=== PATIENT | female | born 1990 | race Caucasian/White ===

== ENCOUNTER 2017-06-20 16:31 | Emergency (ER) | payer OTHER ==
[~2017-06-20] VITALS: Ht 170.2 cm; Wt 60.8 kg
[2017-06-20 16:34] VITALS: Ht 170.2 cm; Wt 60.8 kg
[2017-06-20 19:50] VITALS: BP 115/77
== END 2017-06-20 19:25 | disposition home or self-care (01) ==
LOC: ED 16:31
DX: S02.2XXA Fracture of nasal bones, initial encounter for closed fracture (principal); S09.90XA Unspecified injury of head, initial encounter; E11.9 Type 2 diabetes mellitus without complications; W21.07XA Struck by softball, initial encounter; Y93.64 Activity, baseball; Y92.89 Other specified places as the place of occurrence of the external cause; Y99.8 Other external cause status
CPT/HCPCS: 90715

== ENCOUNTER 2018-09-08 18:23 | Emergency (ER) | payer OTHER ==
[~2018-09-08] VITALS: Ht 170.2 cm; Wt 57.6 kg
[2018-09-08 18:30] VITALS: Ht 170.2 cm; Wt 57.6 kg
[2018-09-08 19:33] LABS: ALBUMIN 3.9 g/dL (3.4-5.0); ALKALINE PHOSPHATASE 65 U/L (46-116); ALT/SGPT 18 U/L (14-59); AST/SGOT 7 U/L (15-37); BILIRUBIN TOTAL 0.5 mg/dL (0.20-1.00); CALCIUM 8.9 mg/dL (8.5-10.1); CARBON DIOXIDE 26.7 mmol/L (21-32); CHLORIDE SERUM 100 mmol/L (98-107); CREATININE SERUM 0.6 mg/dL (0.6-1.0); GFR1 > 60 mL/min; GLUCOSE SERUM 207 mg/dL (74-106); POTASSIUM SERUM 3.8 mmol/L (3.5-5.1); SODIUM SERUM 137 mmol/L (136-145); TOTAL PROTEIN, SERUM 6.9 g/dL (6.4-8.2)
[2018-09-08 22:29] VITALS: BP 106/69
== END 2018-09-08 22:29 | disposition home or self-care (01) ==
LOC: ED 18:23
PROVIDERS: Emergency Medicine
DX: J06.9 Acute upper respiratory infection, unspecified (principal); M94.0 Chondrocostal junction syndrome [Tietze]; E10.9 Type 1 diabetes mellitus without complications
CPT/HCPCS: 82962; J1885; Q0092

== ENCOUNTER 2019-04-10 17:58 | Emergency (ER) | payer OTHER | END 2019-04-10 19:06 | disposition left against medical advice (07) | LOC: ED 17:58 | DX: Z53.21 Procedure and treatment not carried out due to patient leaving prior to being seen by health care provider (principal) ==

== ENCOUNTER 2019-04-10 20:37 | Emergency (ER) | payer OTHER ==
[~2019-04-10] VITALS: Ht 167.6 cm; Wt 52.6 kg
[2019-04-10 20:45] VITALS: Ht 167.6 cm; Wt 52.6 kg
[2019-04-10 22:50] LABS: BASOPHIL % 0.3 % (0-2); PLATELET COUNT 271 x10^3mcL (130-400); RED CELL DISTRIBUTION WIDTH 13.3 % (11.5-14.5)
[2019-04-10 23:20] LABS: CARBON DIOXIDE 32.6 mmol/L (21-32); CHLORIDE SERUM 103 mmol/L (98-107); GLUCOSE SERUM 146 mg/dL (74-106); POTASSIUM SERUM 3.8 mmol/L (3.5-5.1); SODIUM SERUM 140 mmol/L (136-145)
[2019-04-10 23:21] LABS: ALBUMIN 3.5 g/dL (3.4-5.0); ALKALINE PHOSPHATASE 57 U/L (46-116); ALT/SGPT 26 U/L (14-59); AST/SGOT 7 U/L (15-37); BILIRUBIN TOTAL 0.09 mg/dL (0.20-1.00); CALCIUM 8.6 mg/dL (8.5-10.1); CREATININE SERUM 0.8 mg/dL (0.6-1.0); GFR1 > 60 mL/min; TOTAL PROTEIN, SERUM 6.4 g/dL (6.4-8.2)
[2019-04-11 00:21] VITALS: BP 112/71
== END 2019-04-11 00:21 | disposition home or self-care (01) ==
LOC: ED 20:37
PROVIDERS: Emergency Medicine
DX: R53.1 Weakness (principal); R51 Headache; E11.9 Type 2 diabetes mellitus without complications
CPT/HCPCS: 82962; J1885; J7030

== ENCOUNTER 2019-05-16 11:47 | Emergency (ER) | payer OTHER ==
[~2019-05-16] VITALS: Ht 170.2 cm; Wt 51.3 kg
[2019-05-16 12:10] VITALS: Ht 170.2 cm; Wt 51.3 kg
[2019-05-16 14:36] LABS: BASOPHIL % 0.1 % (0-2); PLATELET COUNT 184 x10^3mcL (130-400); RED CELL DISTRIBUTION WIDTH 12.8 % (11.5-14.5)
[2019-05-16 14:48] LABS: CALCIUM 8.4 mg/dL (8.5-10.1); CARBON DIOXIDE 21.9 mmol/L (21-32); CHLORIDE SERUM 94 mmol/L (98-107); CREATININE SERUM 0.7 mg/dL (0.6-1.0); GFR1 > 60 mL/min; GLUCOSE SERUM 279 mg/dL (74-106); POTASSIUM SERUM 4.2 mmol/L (3.5-5.1); SODIUM SERUM 130 mmol/L (136-145)
[2019-05-16 14:55] LABS: ALKALINE PHOSPHATASE 73 U/L (46-116); ALT/SGPT 15 U/L (14-59); AST/SGOT 8 U/L (15-37); BILIRUBIN TOTAL 0.5 mg/dL (0.20-1.00); TOTAL PROTEIN, SERUM 6.7 g/dL (6.4-8.2)
[2019-05-16 14:57] LABS: ALBUMIN 3.1 g/dL (3.4-5.0)
[2019-05-16 17:00] VITALS: BP 100/67
== END 2019-05-16 17:00 | disposition home or self-care (01) ==
LOC: ED 11:47
PROVIDERS: Emergency Medicine
DX: E11.65 Type 2 diabetes mellitus with hyperglycemia (principal); F17.210 Nicotine dependence, cigarettes, uncomplicated; Z71.6 Tobacco abuse counseling
CPT/HCPCS: 82962; 87804; 99406; J1885; J2405; J7030

== ENCOUNTER 2019-05-17 12:16 | Inpatient (IN) | payer OTHER ==
[~2019-05-17] VITALS: Ht 170.2 cm; Wt 49.2 kg
[2019-05-17 12:39] VITALS: Ht 170.2 cm; Wt 49.2 kg
[2019-05-17 13:47] LABS: BASOPHIL % 0.1 % (0-2); PLATELET COUNT 230 x10^3mcL (130-400)
[2019-05-17 13:59] LABS: ALKALINE PHOSPHATASE 125 U/L (46-116); ALT/SGPT 22 U/L (14-59); AST/SGOT 16 U/L (15-37); BILIRUBIN TOTAL 0.37 mg/dL (0.20-1.00); CARBON DIOXIDE 11.8 mmol/L (21-32); CHLORIDE SERUM 93 mmol/L (98-107); GFR1 > 60 mL/min; GLUCOSE SERUM 399 mg/dL (74-106); LIPASE 35 IU/L (73-393); SODIUM SERUM 125 mmol/L (136-145); TOTAL PROTEIN, SERUM 7.9 g/dL (6.4-8.2)
[2019-05-17 14:02] LABS: ALBUMIN 3.3 g/dL (3.4-5.0); POTASSIUM SERUM 5.7 mmol/L (3.5-5.1)
[2019-05-17 15:28] LABS: UA SPECIFIC GRAVITY 1.025 (1.005-1.035); microscopic required? YES; urine erythrocyte 2+ (NEGATIVE)
[2019-05-17 17:13] VITALS: BP 99/55
[2019-05-17 19:20] VITALS: BP 112/68
[2019-05-17 20:23] LABS: CALCIUM 7.8 mg/dL (8.5-10.1); CARBON DIOXIDE 13.3 mmol/L (21-32); CHLORIDE SERUM 103 mmol/L (98-107); CREATININE SERUM 0.9 mg/dL (0.6-1.0); GFR1 > 60 mL/min; MAGNESIUM 1.9 mg/dL (1.8-2.4); PHOSPHOROUS 2.7 mg/dL (2.5-4.9); POTASSIUM SERUM 4.9 mmol/L (3.5-5.1); SODIUM SERUM 131 mmol/L (136-145)
[2019-05-17 20:28] LABS: GLUCOSE SERUM 296 mg/dL (74-106)
[2019-05-17 23:27] VITALS: BP 100/65
[2019-05-18 01:01] LABS: CALCIUM 7.5 mg/dL (8.5-10.1); CARBON DIOXIDE 17.8 mmol/L (21-32); CHLORIDE SERUM 106 mmol/L (98-107); CREATININE SERUM 0.8 mg/dL (0.6-1.0); GFR1 > 60 mL/min; GLUCOSE SERUM 184 mg/dL (74-106); MAGNESIUM 1.7 mg/dL (1.8-2.4); PHOSPHOROUS 2.2 mg/dL (2.5-4.9); POTASSIUM SERUM 4.5 mmol/L (3.5-5.1); SODIUM SERUM 134 mmol/L (136-145)
[2019-05-18 08:18] LABS: CALCIUM 8.1 mg/dL (8.5-10.1); CARBON DIOXIDE 20.1 mmol/L (21-32); CHLORIDE SERUM 104 mmol/L (98-107); CREATININE SERUM 0.6 mg/dL (0.6-1.0); GFR1 > 60 mL/min; GLUCOSE SERUM 194 mg/dL (74-106); MAGNESIUM 1.6 mg/dL (1.8-2.4); PHOSPHOROUS 1.4 mg/dL (2.5-4.9); POTASSIUM SERUM 3.8 mmol/L (3.5-5.1); SODIUM SERUM 132 mmol/L (136-145)
[2019-05-18 08:46] VITALS: BP 105/61
[2019-05-18 09:02] LABS: PLATELET COUNT 186 x10^3mcL (130-400); RED CELL DISTRIBUTION WIDTH 13.2 % (11.5-14.5)
[2019-05-18 09:36] LABS: BASOPHIL % 0 % (0-2)
[2019-05-18 17:03] VITALS: BP 102/63
[2019-05-18 19:59] VITALS: BP 108/65
[2019-05-19 05:33] VITALS: BP 122/86
[2019-05-19 06:39] LABS: BASOPHIL % 0.2 % (0-2); PLATELET COUNT 178 x10^3mcL (130-400)
[2019-05-19 07:39] LABS: ALKALINE PHOSPHATASE 90 U/L (46-116); ALT/SGPT 20 U/L (14-59); AST/SGOT 18 U/L (15-37); BILIRUBIN DIRECT 0.06 mg/dL (0.0-0.2); CALCIUM 7.8 mg/dL (8.5-10.1); CARBON DIOXIDE 22.8 mmol/L (21-32); CHLORIDE SERUM 105 mmol/L (98-107); CREATININE SERUM 0.4 mg/dL (0.6-1.0); GFR1 > 60 mL/min; GLUCOSE SERUM 141 mg/dL (74-106); POTASSIUM SERUM 3.5 mmol/L (3.5-5.1); SODIUM SERUM 137 mmol/L (136-145)
[2019-05-19 07:42] LABS: ALBUMIN 2.1 g/dL (3.4-5.0); TOTAL PROTEIN, SERUM 5.4 g/dL (6.4-8.2)
[2019-05-19 08:30] VITALS: BP 107/73
[2019-05-19 12:30] VITALS: BP 108/72
[2019-05-19 17:29] VITALS: BP 110/76
[2019-05-19 20:52] VITALS: BP 102/69
[2019-05-20 05:38] VITALS: BP 106/69
[2019-05-20 06:41] LABS: BASOPHIL % 0.1 % (0-2); PLATELET COUNT 187 x10^3mcL (130-400); RED CELL DISTRIBUTION WIDTH 13.5 % (11.5-14.5)
[2019-05-20 06:50] LABS: CALCIUM 7.5 mg/dL (8.5-10.1); CARBON DIOXIDE 27.8 mmol/L (21-32); CHLORIDE SERUM 103 mmol/L (98-107); CREATININE SERUM 0.4 mg/dL (0.6-1.0); GFR1 > 60 mL/min; GLUCOSE SERUM 200 mg/dL (74-106); POTASSIUM SERUM 3.6 mmol/L (3.5-5.1); SODIUM SERUM 140 mmol/L (136-145)
[2019-05-20 07:54] VITALS: BP 99/71
[2019-05-20 12:04] VITALS: BP 110/78
[2019-05-20] MEDS ORDERED: NICOTINE T7 MG/24 H1 TOP (12:47)
[2019-05-20] MEDS ORDERED: KEFLEX500 M1 PO (12:47)
[2019-05-20 14:10] VITALS: BP 110/78
== END 2019-05-20 15:10 | disposition home or self-care (01) | DRG 420 ==
LOC: ED 12:16 → MU 15:25 → IC 15:25 → MU 05-18 03:35
PROVIDERS: Emergency Medicine; Internal Medicine; ADMIT Internal Medicine Pulmonary Disease
DX: E10.10 Type 1 diabetes mellitus with ketoacidosis without coma (principal); N12 Tubulo-interstitial nephritis, not specified as acute or chronic; E86.0 Dehydration; K59.00 Constipation, unspecified; Z79.4 Long term (current) use of insulin
CPT/HCPCS: 82962; G0378; J0696; J1170; J1815; J1885; J2270; J2405; J3490; J7030; Q0092; Q9966; Q9967